=== PATIENT | female | born 1995 | race Caucasian/White ===

== ENCOUNTER → 2018-07-17 | Outpatient (CLI) | payer OTHER ==
[~2018-07-17] MED LIST: ASPI325; DAYQUIL; DIPH50 PO; ERYT500 PO; FAMO20 PO; GILDAGIA PO; ONDA4 PO; OXYC1TAB11 PO; PROZAC20 MG PO; RANI150; RXPROMSY PO
== END | disposition home or self-care (01) ==
LOC: LAB EV 20:01 → LAB SHORT 20:01
DX: R30.0 Dysuria (principal)
CPT/HCPCS: 87077; 87086

== ENCOUNTER → 2018-10-09 | Outpatient (CLI) | payer OTHER | END | disposition home or self-care (01) | LOC: LAB SHORT 17:28 → LAB EV 17:28 | DX: N12 Tubulo-interstitial nephritis, not specified as acute or chronic (principal) | CPT/HCPCS: 87077; 87086; 87186 ==